=== PATIENT | female | born 1955 | race American Indian/Alaskan Native ===

== ENCOUNTER 2023-12-06 14:06 | Emergency (ER) | payer MEDICARE, OTHER ==
[~2023-12-06] VITALS: Ht 175.3 cm; Wt 145.0 kg
[2023-12-06 14:13] VITALS: BP 146/64; RESP 18; TEMP 98.1; O2SAT 99
[2023-12-06 14:15] VITALS: PULSE 85
[2023-12-06] MEDS ORDERED: ACET-2708 MT (15:50)
== END 2023-12-06 16:10 | disposition home or self-care (01) ==
LOC: ER 14:06
DX: M54.2 Cervicalgia (principal); M54.50 Low back pain, unspecified; G89.29 Other chronic pain; M25.551 Pain in right hip; V98.8XXA Other specified transport accidents, initial encounter; Y93.89 Activity, other specified; Y92.89 Other specified places as the place of occurrence of the external cause; Y99.8 Other external cause status
CPT/HCPCS: 99282